=== PATIENT | male | born 1975 | race Caucasian/White ===

== ENCOUNTER → 2021-10-19 | Outpatient (CLI) | payer OTHER ==
[~2021-10-19] MED LIST: PROHANCE 279.3MG/ML 15ML VIAL As Ordered ONE
== END ==
LOC: M RAD 10:32
PROVIDERS: ATTEND Physician Assistant
DX: N63.41 Unspecified lump in right breast, subareolar (principal)
CPT/HCPCS: A9576; C8908

== ENCOUNTER 2022-05-01 12:50 | Emergency (ER) | payer OTHER ==
[~2022-05-01] VITALS: Ht 175.3 cm; Wt 80.5 kg
[2022-05-01 13:48] LABS: BASO % 0.5 % (0.0-1.0); EOS # 0.1 10^3/uL (0.0-0.5); EOS % 1.5 % (0.0-3.0); HEMATOCRIT 45.4 % (42.0-52.0); HEMOGLOBIN 15.6 g/dl (13.5-17.5); LYMPH % 12.9 % (24.0-44.0); MEAN CORPUSCULAR HEMOGLOBIN 29.5 pg (27.0-33.0); MEAN CORPUSCULAR HGB CONC 34.4 g/dl (32.0-36.5); MEAN CORPUSCULAR VOLUME 85.8 fl (80.0-96.0); MONO # 0.6 10^3/uL (0.0-0.8); MONO % 7.9 % (2.0-8.0); NEUTROPHILS # 5.8 10^3/uL (1.5-8.5); NEUTROPHILS % 76.8 % (36.0-66.0); PLATELET COUNT, AUTOMATED 230 10^3/uL (150-450); RED BLOOD COUNT 5.29 10^6/uL (4.30-6.10); WHITE BLOOD COUNT 7.6 10^3/uL (4.0-10.0)
[2022-05-01 14:03] LABS: PROTHROMBIN TIME 12.3 SECONDS (12.5-14.5)
[2022-05-01 14:04] LABS: PARTIAL THROMBOPLASTIN TIME 27.3 SECONDS (24.8-34.2)
[2022-05-01 14:18] LABS: LIPASE 25 U/L (12-53)
[2022-05-01 14:19] LABS: ETHYL ALCOHOL (ETHANOL) 0.004 % (0.000-0.010)
[2022-05-01 14:20] LABS: CPK CREATINE PHOSPHOKINASE 90 U/L (46-171)
[2022-05-01 14:22] LABS: RSV AMPLIFICATION NEGATIVE (NEGATIVE)
[2022-05-01 14:23] LABS: ALBUMIN 4.1 G/DL (3.2-5.2); ALKALINE PHOSPHATASE 93 U/L (46-116); ALT/SGPT 77 U/L (7.0-40); AST/SGOT 30 U/L (<34); BILIRUBIN,DIRECT 0.2 MG/DL (<0.4); BILIRUBIN,TOTAL 0.6 MG/DL (0.3-1.2); BLOOD UREA NITROGEN 11 MG/DL (9-23); CALCIUM LEVEL 9.8 MG/DL (8.5-10.1); CARBON DIOXIDE LEVEL 29 MMOL/L (20-31); CHLORIDE LEVEL 104 MMOL/L (98-107); CK-MB VALUE MASS < 1.0 NG/ML (<3.6); GLOMERULAR FILTRATION RATE > 60.0 (>60); GLUCOSE, FASTING 99 MG/DL (60-100); MB/CK RELATIVE INDEX 1.11 (< OR =4); POTASSIUM SERUM 4.1 MMOL/L (3.5-5.1); SODIUM LEVEL 140 MMOL/L (136-145); THYROID STIMULATING HORMONE 1.894 uIU/ML (0.55-4.78); TOTAL PROTEIN 7.4 G/DL (5.7-8.2)
[2022-05-01] MEDS ORDERED: GING250C PO (15:11)
[2022-05-01] MEDS ORDERED: GNP400TA10 PO (15:11)
[2022-05-01] MEDS ORDERED: BIOT1CAP2 PO (15:11)
[2022-05-01] MEDS ORDERED: VITMTA PO (15:11)
[2022-05-01] MEDS ORDERED: PROBCAP14 PO (15:11)
[2022-05-01] MEDS ORDERED: OMEGCAP9 PO (15:11)
[2022-05-01] MEDS ORDERED: SAW160CA9 PO (15:11)
[2022-05-01 15:15] LABS: AMPHETAMINES LEVEL URINE NEGATIVE (NEGATIVE); BARBITURATES URINE NEGATIVE (NEGATIVE); BENZODIAZEPINES URINE NEGATIVE (NEGATIVE); CANNABINOIDS URINE NEGATIVE (NEGATIVE); COCAINE METABOLITE URINE NEGATIVE (NEGATIVE); METHADONE URINE NEGATIVE (NEGATIVE); OPIATES URINE NEGATIVE (NEGATIVE); PHENCYCLIDINE URINE NEGATIVE (NEGATIVE)
[2022-05-01 15:16] LABS: D-DIMER QUANT < 270 ng/ml (<500)
[2022-05-01 15:48] LABS: CK-MB VALUE MASS < 1.0 NG/ML (<3.6)
[2022-05-01 15:52] LABS: CPK CREATINE PHOSPHOKINASE 78 U/L (46-171); MB/CK RELATIVE INDEX 1.28 (< OR =4)
[2022-05-01] MEDS ORDERED: HOLTER MONITOR XX ×2 (15:59→16:01)
[2022-05-01 16:32] VITALS: BP 129/76
== END 2022-05-01 16:35 | disposition home or self-care (01) ==
LOC: M ED 12:50
DX: R00.2 Palpitations (principal); Z79.810 Long term (current) use of selective estrogen receptor modulators (SERMs); Z79.899 Other long term (current) drug therapy

== ENCOUNTER → 2022-10-12 | Outpatient (CLI) | payer OTHER ==
[~2022-10-12] MED LIST changes: +BIOT1CAP2 PO; +GING250C PO; +GNP400TA10 PO; +HOLTER MONITOR XX; +OMEGCAP9 PO; +PROBCAP14 PO; -PROHANCE 279.3MG/ML 15ML VIAL As Ordered ONE; +SAW1CAP3 PO; +VITMTA PO
== END ==
LOC: M WHC 14:52
PROVIDERS: ATTEND Surgery
DX: N62 Hypertrophy of breast (principal)
CPT/HCPCS: 77066; G0279